=== PATIENT | female | born 1970 | race Asian ===

== ENCOUNTER 2021-07-23 06:59 | Day surgery (SDC) | payer MEDICAID, SELFPAY ==
[~2021-07-23] VITALS: Ht 154.9 cm; Wt 54.4 kg
[2021-07-23] MEDS ORDERED: SIMETHICONE 40 MG/0.6 ML ML ONE (07:13)
[2021-07-23] MEDS: MEPERIDINE 100 MG INJ. 100 MG/ML VIAL ONE ×2 (09:35→09:37)
[2021-07-23] MEDS: MIDAZOLAM HCL 5 MG/5 ML VIAL ONE ×3 (09:35→09:44)
[2021-07-23 13:40] VITALS: BP_SYST 104
== END 2021-07-23 11:05 | disposition home or self-care (01) ==
LOC: SDS 06:59 → SMU 07:01 → SDS 11:05
PROVIDERS: ATTEND Internal Medicine Gastroenterology
DX: Z12.11 Encounter for screening for malignant neoplasm of colon (principal); K64.8 Other hemorrhoids; Z20.822 Contact with and (suspected) exposure to COVID-19; Z79.899 Other long term (current) drug therapy
CPT/HCPCS: 36415; 45378; 84703; 87426; 99152; G0378; J2175; J2250; U0003